=== PATIENT | male | born 1995 | race Asian ===

== ENCOUNTER 2019-04-09 19:58 | Emergency (ER) | payer BC, OTHER ==
[~2019-04-09] VITALS: Ht 162.5 cm; Wt 81.3 kg
--- NOTE | 2019-04-09 20:26 | ED GI ---
General Chief Complaint: Abdominal/GI Problems Stated Complaint: STOMACHE Nursing Triage Note: PT. REPORTED HE THINKS HE MAY HAVE FOOD POISON. HE STARTED HAVING ABD. PAIN AROUND 5 PM AND THEN VOMITED MULTIPLE TIMES AROUND 6 PM. PT. STATED HE THINKS IT WAS DO TO THE PAIN. NOW HE REALLY HAS NO NAUSEA BUT HAS ABD PAIN ALL OVER THE ABD. Sepsis Screen: No Definite Risk Source of Information: Patient History of Present Illness Date Seen by Provider: Apr 09, 2019 Time Seen by Provider: 20:26 Initial Comments 23-year-old male presenting with complaints of abdominal pain and cramping. He ate some leftover food and thinks that he may have food poisoning from that. He was the only person that ate that food. He developed aching and pain in his abdomen and then forced himself to vomit several times. This was between 5 and 6 PM. He states that he never truly had nausea but he made himself throw up. He continues to have severe abdominal cramping and gas pains. He denies any diarrhea. He has no pain with urination. He has had no surgeries on his belly. Had symptoms like this before. He has no fever or chills. There is no one spot of his abdomen that hurts, it is diffuse pain. Allergies and Home Medications Allergies Coded Allergies: No Known Drug Allergies (Unverified , 04/09/19) Patient Home Medication List Home Medication List Reviewed: Yes Review of Systems Review of Systems Constitutional: No chills, No dizziness, No fever EENTM: No Symptoms Reported Respiratory: No Symptoms Reported Cardiovascular: No Symptoms Reported Gastrointestinal: See HPI Genitourinary: See HPI Musculoskeletal: no symptoms reported Skin: no symptoms reported Psychiatric/Neurological: Anxiety Endocrine: No Symptoms Reported Past Xeilktd-[id number] Hx Past Med/Social Hx: Reviewed Nursing Past Med/Soc Hx Patient Social History Recent Foreign Travel: No Contact w/Someone Who Travel: No Recent Infectious Disease Expo: No Recent Hopitalizations: No Physical Abuse: No Sexual Abuse: No Mistreated: No Fear: No Seasonal Allergies Seasonal Allergies: No Past Medical History Surgeries: No Respiratory: No Cardiac: No Neurological: No Genitourinary: No Gastrointestinal: No Musculoskeletal: No Endocrine: No HEENT: No Cancer: No Psychosocial: No Integumentary: No Blood Disorders: No Physical Exam Vital Signs Vital Signs - First Documented 04/09/19 20:00 Temp 36.2 Pulse 80 Resp 20 B/P (MAP) 137/91 (106) Pulse Ox 100 O2 Delivery Room Air Capillary Refill : Less Than 3 Seconds Height/Weight/BMI Height: '" Weight: lbs. oz. kg; 30.00 BMI Method: General Appearance: WD/WN, moderate distress HEENT: PERRL/EOMI, pharynx normal Neck: non-tender, full range of motion, supple, normal inspection Respiratory: chest non-tender, lungs clear, normal breath sounds, no respiratory distress, no accessory muscle use Cardiovascular: normal peripheral pulses, regular rate, rhythm Gastrointestinal: soft, no pulsatile mass, abnormal bowel sounds (hypoactive bowel sounds), distended (mildly distended); No rebound; tenderness (diffusely tender to palpation); No mass Rectal: deferred Extremities: normal range of motion, non-tender, no pedal edema, no calf tenderness, normal capillary refill Back: normal inspection, no CVA tenderness, no vertebral tenderness Neurologic/Psychiatric: alert, normal mood/affect, oriented x 3 Skin: normal color, warm/dry Progress/Results/Core Measures Results/Orders Lab Results Laboratory Tests Test 04/09/19 20:45 Range/Units Sodium Level 139 135-145 MMOL/L Potassium Level 3.5 L 3.6-5.0 MMOL/L Chloride Level 99 98-107 MMOL/L Carbon Dioxide Level 21 21-32 MMOL/L Anion Gap 19 H 5-14 MMOL/L Blood Urea Nitrogen 17 7-18 MG/DL Creatinine 1.07 0.60-1.30 MG/DL Estimat Glomerular Filtration Rate > 60 BUN/Creatinine Ratio 16 Glucose Level 110 H 70-105 MG/DL Calcium Level 10.0 8.5-10.1 MG/DL Corrected Calcium 8.5-10.1 MG/DL Total Bilirubin 0.4 0.1-1.0 MG/DL Aspartate Amino Transf (AST/SGOT) 30 5-34 U/L Alanine Aminotransferase (ALT/SGPT) 29 0-55 U/L Alkaline Phosphatase 63 40-136 U/L Total Protein 8.5 H 6.4-8.2 GM/DL Albumin 4.8 H 3.2-4.5 GM/DL My Orders Orders - CLIFF HI MD Comprehensive Metabolic Panel (04/09/19 20:46) Ed Iv/Invasive Line Start (04/09/19 20:46) Ns Iv 1000 Ml (Sodium Chloride 0.9%) (04/09/19 20:46) Ondansetron Injection (Zofran Injectio (04/09/19 20:46) Ketorolac Injection (Toradol Injection) (04/09/19 20:46) Dicyclomine Injection (Bentyl Injection) (04/09/19 20:46) Vital Signs/I&O 04/09/19 04/09/19 20:00 22:14 Temp 36.2 37.1 Pulse 80 88 Resp 20 16 B/P (MAP) 137/91 (106) 129/61 Pulse Ox 100 97 O2 Delivery Room Air Room Air 04/10/19 00:00 Intake Total 1000 ml Balance 1000 ml Blood Pressure Mean: 106 Progress Progress Note #1: Progress Note Initially patient was refusing an IV but as I explained to him that it would help get him feeling better faster he finally consented. He was given IV fluids, Zofran, Toradol, Bentyl. His chemistry panel was checked to make sure his electrolytes did not appear significantly abnormal. Progress Note #2: Progress Note Patient had significant improvement after treatment. He was feeling much better and anxious to go home. He denied feeling like he needed any nausea medicine or medicine for home. His chemistry panel did not show acute significant abnormality. Encouraged to try a liquid diet for Friday. Then slowly advance his diet as he tolerates. Check back with the clinic for continued concerns or problems. Return for worsening symptoms. Departure Impression Primary Impression: Food poisoning Additional Impression: Abdominal cramping Disposition: 01 HOME, SELF-CARE Condition: Stable Departure-Patient Inst. Decision time for Depature: 22:08 Referrals: NO,LOCAL PHYSICIAN (PCP) Primary Care Physician Patient Instructions: Food Poisoning (DC), Full Liquid Diet, Gas and Bloating Add. Discharge Instructions: Stay well hydrated and drink plenty of fluids Follow a Liquid diet on Friday then slowly advance back to a regular diet as your stomach and gut tolerates it Follow up with clinic for continued concerns All discharge instructions reviewed with patient and/or family. Voiced understanding. CLIFF HI MD Apr 09, 2019 20:26
[2019-04-09] MEDS ORDERED: KETOROLAC 30 MG/ML VIAL IVP STA (20:46)
[2019-04-09] MEDS ORDERED: DICYCLOMINE 10 MG/ML (BENTYL) 2 ML AMP IM STA (20:46)
[2019-04-09] MEDS ORDERED: NS IV 1000 ML 1,000 ML IV STA (20:46)
[2019-04-09] MEDS ORDERED: ONDANSETRON 4 MG/2 ML (SDV) Z0FRAN IVP STA (20:46)
--- NOTE | 2019-04-09 21:30 | NUR ---
PT. REPORTED HE IS FEELING SO MUCH BETTER.
[2019-04-09 21:38] LABS: CHLORIDE 99 MMOL/L (98-107); POTASSIUM 3.5 MMOL/L (3.6-5.0); SODIUM 139 MMOL/L (135-145)
[2019-04-09 21:39] LABS: ALANINE AMINOTRANSFERASE 29 U/L (0-55); ALKALINE PHOSPHATASE 63 U/L (40-136); BILIRUBIN,TOTAL 0.4 MG/DL (0.1-1.0); BUN/CREATININE RATIO 16; CARBON DIOXIDE 21 MMOL/L (21-32); CREATININE SERUM 1.07 MG/DL (0.60-1.30); GFR ESTIMATED > 60; GLUCOSE 110 MG/DL (70-105); TOTAL PROTEIN 8.5 GM/DL (6.4-8.2)
[2019-04-09 21:40] LABS: ALBUMIN 4.8 GM/DL (3.2-4.5)
[2019-04-09 22:14] VITALS: BP 129/61
== END 2019-04-09 22:18 | disposition home or self-care (01) ==
LOC: ER FS 20:02
DX: A05.9 Bacterial foodborne intoxication, unspecified (principal)
CPT/HCPCS: 36415; 80053; 96361; 96372; 96374; 96375